=== PATIENT | male | born 1965 | race Caucasian/White ===

== ENCOUNTER 2019-05-05 07:40 | Emergency (ER) | payer OTHER, MEDICAID ==
[~2019-05-05] VITALS: Ht 182.9 cm; Wt 90.3 kg
--- NOTE | 2019-05-05 07:45 | NUR ---
BIB [facility], FOUND ALTERED X 1 HOUR OFFICE MESSENGER. PATIENT A/OX1, RESPONSIVE TO STIMULI. BREATHING EVEN AND UNLABORED, NO SOB NOTED. SKIN FEELS COLD TO TOUCH. DR. SILVERMAN AT BEDSIDE FOR EVAL. PATIENT CHANGED INTO GOWN AND ATTACHED TO THE MONITOR.
[2019-05-05] MEDS ORDERED: IV NS 0.9% 500 ML BAG IV ONE (08:00)
[2019-05-05] MEDS ORDERED: DEXTROSE 50%-WATER 50 ML DISP.SYRIN ONE (08:01)
[2019-05-05 08:16] LABS: BASOPHILS # (AUTO) 0.1 /CMM (0.0-0.2); BASOPHILS % (AUTO) 0.9 % (0.0-2.0); EOSINOPHILS % (AUTO) 1.2 % (0.0-6.0); HEMATOCRIT 40 % (39-51); HEMOGLOBIN 13.6 g/dL (13.5-17.5); LYMPHOCYTES # (AUTO) 1.1 /CMM (0.8-4.8); LYMPHOCYTES % (AUTO) 8.6 % (20.0-44.0); MEAN CORPUSCULAR HGB CONC 34 g/dl (31.0-36.0); MEAN CORPUSCULAR VOLUME 96 fL (80-96); MONOCYTES # (AUTO) 0.8 /CMM (0.1-1.30); MONOCYTES % (AUTO) 5.7 % (2.0-12.0); NEUTROPHILS # (AUTO) 11.1 /CMM (1.8-8.9); NEUTROPHILS % (AUTO) 83.6 % (43.0-81.0); PLATELET COUNT (AUTO) 232 /CMM (150-450); WHITE BLOOD COUNT (AUTO) 13.3 K/uL (4.3-11.0)
--- NOTE | 2019-05-05 08:17 | NUR ---
PATIENT MORE ALERT, A/OX2-3, VERBALLY RESPONSIVE. URINAL PROVIDED, UNABLE TO URINATE AT THIS TIME.
[2019-05-05 08:25] LABS: ALANINE AMINOTRANSFERASE 23 U/L (12-78); ALBUMIN 3.2 g/dL (3.4-5.0); ALCOHOL, BLOOD < 3 mg/dL (0-0); ALKALINE PHOSPHATASE 204 U/L (46-116); ASPARTATE AMINOTRANSFERASE 21 U/L (15-37); BILIRUBIN,DIRECT 0.1 mg/dL (0.0-0.2); BILIRUBIN,TOTAL 0.2 mg/dL (0.2-1.0); CARBON DIOXIDE 31 mmol/L (21-32); CHLORIDE 106 mmol/L (98-107); CREATININE 1.2 mg/dL (0.6-1.3); POTASSIUM 3.7 mmol/L (3.5-5.1); SALICYLATE 8.1 mg/dL (2.8-20.0); SODIUM SERUM 142 mmol/L (136-145); TOTAL PROTEIN, SERUM 6.4 g/dL (6.4-8.2); UREA NITROGEN, BLOOD 30 mg/dL (7-18)
[2019-05-05 08:26] LABS: ACETAMINOPHEN 0 ug/ml (10-30)
[2019-05-05 08:27] LABS: GLUCOSE 27 mg/dL (74-106)
[2019-05-05] MEDS ORDERED: DEXTROSE 50%-WATER 50 ML DISP.SYRIN IVP ONE (08:30)
--- NOTE | 2019-05-05 08:40 | NUR ---
PATIENT CAME BACK FROM [place]
[2019-05-05 08:47] LABS: SERUM AMMONIA 18 umol/L (11-32)
--- NOTE | 2019-05-05 08:57 | NUR ---
PAGED CATRACHITO ZHANGP
--- NOTE | 2019-05-05 09:11 | NUR ---
SPOKE TO [facility], GAVE UPDATED VITALS.
--- NOTE | 2019-05-05 09:30 | NUR ---
STARTED IV D5 1/2NS AT 75ML/HR PER DR. SILVERMAN. UNABLE TO ADMINISTER ON E-MAR SECTION.
--- NOTE | 2019-05-05 09:47 | NUR ---
FOOD PROVIDED, PATIENT EATING AT THIS TIME.
[2019-05-05] MEDS ORDERED: IV D5/0.45 NACL 500 ML IV ONE (10:00)
--- NOTE | 2019-05-05 10:23 | NUR ---
PATIENT STILL UNABLE TO PROVIDE URINE AT THIS TIME. URINAL AT BEDSIDE.
--- NOTE | 2019-05-05 10:26 | NUR ---
PT ACCEPTED TO [facility] ED ACCEPTING MD DR. ANN NUMBER FOR REPORT IS [phone]
--- NOTE | 2019-05-05 10:49 | NUR ---
SISTER CONTACT INFO IVETH CHÁVEZ ([phone]) PATIENT TOOK ALL HIS SCHEDULED MEDICATIONS, PER DR. HERRERA BRICE FOR PATIENT TO TAKE.
[2019-05-05 10:55] VITALS: BP 150/89
--- NOTE | 2019-05-05 11:12 | NUR ---
PATIENT TRANSFERRED TO [facility], REPORT GIVEN TO JOVI RIVAS VIA [employer], ATTEMPTED TO GIVE REPORT TO [facility], BUT CHARGE NURSE IS UNAVAILABLE AT THIS TIME. PATIENT'S A/OX4, BREATHING EVEN AND UNLABORED, NO DISTRESS NOTED. STILL UNABLE TO PROVIDE UA AT THIS TIME, DR. SILVERMAN AWARE. PATIENT LEFT IN STABLE CONDITION WITH THE IV D5 1/2NS. Addendum: 05/05/19 at 1118 by ROOLEGARIOANCES ADDENDUM: D5 1/2 NS IV START TIME: 929 END TIME: INFUSING WHILE ON TRANSPORT.
--- NOTE | 2019-05-05 11:26 | NUR ---
REPORT GIVEN TO NAYA RIVAS.
== END 2019-05-05 11:26 | disposition short-term general hospital (02) ==
LOC: ER 07:41
DX: E11.649 Type 2 diabetes mellitus with hypoglycemia without coma (principal); R41.82 Altered mental status, unspecified; G40.909 Epilepsy, unspecified, not intractable, without status epilepticus; Z88.8 Allergy status to other drugs, medicaments and biological substances
CPT/HCPCS: 36415; 70450; 71045; 80048; 80076; 80184; 80307; 82140; 82962 ×6; 83605; 84443; 84484; 85025; 85730; 87040 ×2; 93005; 96365; 96366; 96376; 99291; G0480; J3490 ×2; J7040 ×2; 80305

== ENCOUNTER 2022-11-07 15:49 | Emergency (ER) | payer OTHER ==
[~2022-11-07] VITALS: Ht 180.3 cm; Wt 73.5 kg
[2022-11-07] MEDS ORDERED: ETOMIDATE 2 MG/ML VIAL IV ONE ×2 (15:55→17:00)
[2022-11-07] MEDS ORDERED: SUCCINYLCHOLINE CHLORIDE 20 MG/ML VIAL IV ONE ×2 (15:55→17:00)
[2022-11-07] MEDS ORDERED: LORAZEPAM INJ 2 MG/ML VIAL IVP ONE (16:00)
[2022-11-07] MEDS ORDERED: LORAZEPAM INJ 2 MG/ML VIAL ONE (16:01)
[2022-11-07 16:22] LABS: BASOPHILS # (AUTO) 0.2 K/uL (0.0-0.2); HEMATOCRIT 32 % (39-51); HEMOGLOBIN 10.4 g/dL (13.5-17.5); LYMPHOCYTES # (AUTO) 0.2 K/uL (0.8-4.8); LYMPHOCYTES % (AUTO) 1.2 % (20.0-44.0); MEAN CORPUSCULAR HGB CONC 32 g/dl (31.0-36.0); MEAN CORPUSCULAR VOLUME 97 fL (80-96); MONOCYTES # (AUTO) 0.8 K/uL (0.1-1.30); MONOCYTES % (AUTO) 4.4 % (2.0-12.0); NEUTROPHILS # (AUTO) 16.9 K/uL (1.8-8.9); NEUTROPHILS % (AUTO) 93.4 % (43.0-81.0); PLATELET COUNT (AUTO) 293 K/uL (150-450); RED BLOOD CELL COUNT(AUTO) 3.33 MIL/uL (4.5-6.0); WHITE BLOOD COUNT (AUTO) 18.1 K/uL (4.3-11.0)
[2022-11-07] MEDS ORDERED: LEVETIRACETAM (500MG) 500 MG in IV NS 0.9% 100 ML IV ONE (16:30)
[2022-11-07] MEDS ORDERED: PROPOFOL 100 ML ONE ×2 (16:39→22:10)
[2022-11-07] MEDS ORDERED: LEVETIRACETAM (500MG) 500 MG/5 ML VIAL IV ONE (16:40)
--- NOTE | 2022-11-07 16:48 | NUR ---
MD AT BEDSIDE FOR INTUBATION
[2022-11-07] MEDS ORDERED: IV NS 0.9% 1,000 ML IV ONE (17:00)
[2022-11-07] MEDS ORDERED: PROPOFOL 100 ML IV PRN (17:00)
[2022-11-07 17:11] LABS: ALANINE AMINOTRANSFERASE 54 U/L (12-78); ALBUMIN 2.4 g/dL (3.4-5.0); ALKALINE PHOSPHATASE 201 U/L (46-116); ASPARTATE AMINOTRANSFERASE 52 U/L (15-37); BILIRUBIN,DIRECT 0.1 mg/dL (0.0-0.2); BILIRUBIN,TOTAL 0.5 mg/dL (0.2-1.0); CALCIUM, SERUM 8.7 mg/dL (8.5-10.1); CARBON DIOXIDE 13 mmol/L (21-32); CREATININE 3.4 mg/dL (0.6-1.3); POTASSIUM 5.9 mmol/L (3.5-5.1); TOTAL PROTEIN, SERUM 5.6 g/dL (6.4-8.2)
--- NOTE | 2022-11-07 17:19 | NUR ---
MOVE SHEET SUBMITTED.
[2022-11-07 17:24] LABS: CHLORIDE 78 mmol/L (98-107); GLUCOSE 1262 mg/dL (74-106); SODIUM SERUM 120 mmol/L (136-145); UREA NITROGEN, BLOOD 95 mg/dL (7-18)
[2022-11-07 17:25] LABS: ALCOHOL, BLOOD < 3 mg/dL (0-0)
--- NOTE | 2022-11-07 17:41 | NUR ---
CRITICALS reported to
[2022-11-07 17:44] LABS: ABG BASE EXCESS -14.8 mmol/L; ABG PCO2 29.6 mmHg (35.0-45.0); ABG PH 7.213 (7.350-7.450); ABG PO2 121.9 mmHg (75.0-100.0); AaDO2 561.5 mmHg; COHb 0.2 % (0.5-1.5); MetHb 0.3 % (0.0-1.5); O2Hb 96.5 % (94.0-97.0); SITE, ABG Left Radial
[2022-11-07] MEDS ORDERED: CEFEPIME 1 GM in IV D5W 50 ML IV ONE (18:00)
[2022-11-07] MEDS ORDERED: VANCOMYCIN 1 GM in IV D5W 250 ML IV ONE (18:00)
[2022-11-07] MEDS ORDERED: INSULIN REGULAR, HUMAN 100 UNITS in IV NS 0.9% 100 ML IV ONE ×2 (18:00)
[2022-11-07] MEDS ORDERED: IV NS 0.9% 1,000 ML IV PRN (18:00)
--- NOTE | 2022-11-07 18:06 | NUR ---
CALLED [facility] [phone] WILL CALL US BACK.
--- NOTE | 2022-11-07 18:36 | NUR ---
DR. JEREZ FROM [facility] SPEAKING WITH DR. CHAPARRO.
--- NOTE | 2022-11-07 18:45 | NUR ---
PATIENT WAS INTUBATED AROUND 1648 WITH 7.5 ETT TUBE @ 26 LIP. EQUAL BILATERAL CHEST RISE NOTED WITH EQUAL BREATH SOUND. X RAY CONFIRM ET TUBE IN PLACE. PATIENT IS STABLE. ABG DONE AND FIO2 TITRATE TO 40% PER DR. DOMINIQUE. Addendum: 11/07/22 at 1848 by EVERTON ALBA RT Amended: Links added.
--- NOTE | 2022-11-07 18:51 | NUR ---
CALLED [facility] [phone] CHAPARRO BACK.
[2022-11-07] MEDS ORDERED: MORPHINE SULFATE INJ 2 MG/ML DISP.SYRIN IV PRN (19:00)
[2022-11-07] MEDS ORDERED: ONDANSETRON HCL/PF 4 MG/2 ML VIAL IVP PRN (19:00)
[2022-11-07] MEDS ORDERED: ACETAMINOPHEN 325 MG TABLET PO PRN (19:00)
[2022-11-07] MEDS ORDERED: LEVETIRACETAM (500MG) 500 MG in IV NS 0.9% 100 ML IV SCH (19:00)
[2022-11-07] MEDS ORDERED: IV 1/2NS 1000 ML 1,000 ML IV PRN (19:00)
[2022-11-07] MEDS ORDERED: POTASSIUM CL. PREMIX PERIPHER. 50 ML IV PRN (19:00)
[2022-11-07] MEDS ORDERED: IV D5/0.45 NACL 1,000 ML IV PRN (19:00)
[2022-11-07] MEDS ORDERED: INSULIN REGULAR, HUMAN 100 UNITS in IV NS 0.9% 100 ML IV PRN ×2 (19:00)
--- NOTE | 2022-11-07 19:10 | NUR ---
COVID SWAB TAKEN AND SENT TO LAB
--- NOTE | 2022-11-07 19:21 | NUR ---
DR. ARIAS SPEAKING WITH DR. CHAPARRO.
--- NOTE | 2022-11-07 19:30 | NUR ---
COVID ANTIGEN SWAB COLLECTED AND SENT TO LAB
--- NOTE | 2022-11-07 19:45 | NUR ---
INSULIN DRIP STARTED AT 7.3MLS/HR FIXED RATE
--- NOTE | 2022-11-07 19:49 | NUR ---
ROOM 253
--- NOTE | 2022-11-07 19:54 | NUR ---
sister long [phone]
[2022-11-07 20:00] LABS: CALCIUM, SERUM 8.5 mg/dL (8.5-10.1); CREATININE 3.4 mg/dL (0.6-1.3); MAGNESIUM 2.8 mg/dL (1.8-2.4); PHOSPHORUS 7.8 mg/dL (2.5-4.9); POTASSIUM 5.5 mmol/L (3.5-5.1)
--- NOTE | 2022-11-07 20:16 | NUR ---
DR. SOLITARIO WINSTON ON PHONE CALL WITH DR. CHAPARRO.
[2022-11-07] MEDS ORDERED: MEROPENEM 1 G in IV NS 0.9% 100 ML IV SCH (21:00)
--- NOTE | 2022-11-07 21:25 | NUR ---
CALLED [facility] [phone] TO GIVEN UPDATED COVID RESULTS
--- NOTE | 2022-11-07 21:46 | NUR ---
C/O IRIS AT [place] , PT ALREADY HAS A ROOM AT [facility] BUT THEY ARE LOOKING FOR CCT TRANSFER TEAM
[2022-11-07 21:57] LABS: CALCIUM, SERUM 8.1 mg/dL (8.5-10.1); CREATININE 3.4 mg/dL (0.6-1.3); MAGNESIUM 2.9 mg/dL (1.8-2.4); PHOSPHORUS 7.8 mg/dL (2.5-4.9); POTASSIUM 5.3 mmol/L (3.5-5.1)
--- NOTE | 2022-11-07 22:07 | NUR ---
CRITICAL LAB: GLUCOSE [id number]
[2022-11-07 22:40] LABS: BILIRUBIN,URINE NEGATIVE (NEGATIVE); COLOR,URINE YELLOW (YELLOW); LEUKOCYTE ESTERASE ,URINE NEGATIVE (NEGATIVE); NITRITE, URINE NEGATIVE (NEGATIVE); PH,URINE 5.5 (5.0-8.0); PROTEIN,URINE 2+ mg/dl (NEGATIVE); UGLUCOSE 3+ mg/dL (NEGATIVE); UROBILINOGEN,URINE 0.2 EU/dL (0.2)
[2022-11-07 22:55] VITALS: BP 117/78
[2022-11-07] MEDS ORDERED: IV NS 0.9% 1,000 ML BAG IV ONE (23:00)
--- NOTE | 2022-11-07 23:06 | NUR ---
ACCPETED AT [facility] CCT-RN CODE 3 UNDER MD [facility]AD[place] ROOM [id number] ICU REPORT [phone]
[2022-11-07 23:07] LABS: BACTERIA,URINE Rare /HPF (None Seen); RBC,URINE 0-2 /HPF (0-2); SQUAMOUS EPITHELIAL CELL,UR Rare /HPF (None Seen); WBC,URINE 0-2 /HPF (0-3)
[2022-11-07 23:08] LABS: URINE AMORPHOUS URATE Few /HPF (None Seen)
--- NOTE | 2022-11-07 23:14 | NUR ---
RESIDENTIAL AIDE AT PT'S BEDSIDE
--- NOTE | 2022-11-07 23:15 | NUR ---
IVETH(SISTER) WAS NOTIFIED THAT PT IS BEING TRANSFERED TO [facility]
--- NOTE | 2022-11-07 23:19 | NUR ---
REPORT GIVEN TO EVELYN LIND
--- NOTE | 2022-11-07 23:48 | NUR ---
REPORT GIVEN TO CCT-RN AND TEAM AT BEDSIDE
[2022-11-08 00:23] LABS: CREATININE 3.4 mg/dL (0.6-1.3); MAGNESIUM 2.6 mg/dL (1.8-2.4); PHOSPHORUS 6.5 mg/dL (2.5-4.9); POTASSIUM 3.6 mmol/L (3.5-5.1)
[2022-11-08] MEDS ORDERED: VANCOMYCIN POST DIALYSIS 500MG IV PRN ×2 (12:00)
== END 2022-11-08 00:10 | disposition short-term general hospital (02) ==
LOC: ER 15:54
DX: E11.10 Type 2 diabetes mellitus with ketoacidosis without coma (principal); J96.01 Acute respiratory failure with hypoxia; G40.901 Epilepsy, unspecified, not intractable, with status epilepticus; E44.0 Moderate protein-calorie malnutrition; Z68.22 Body mass index [BMI] 22.0-22.9, adult; N17.9 Acute kidney failure, unspecified; E87.5 Hyperkalemia; D72.829 Elevated white blood cell count, unspecified; Z20.822 Contact with and (suspected) exposure to COVID-19; J93.9 Pneumothorax, unspecified; T50.916A Underdosing of multiple unspecified drugs, medicaments and biological substances, initial encounter; Z91.128 Patient's intentional underdosing of medication regimen for other reason; Y92.019 Unspecified place in single-family (private) house as the place of occurrence of the external cause; E87.1 Hypo-osmolality and hyponatremia; Z88.8 Allergy status to other drugs, medicaments and biological substances; I69.398 Other sequelae of cerebral infarction; G93.89 Other specified disorders of brain
CPT/HCPCS: 99291; 96365; 96366; 96368; 31500; 96375; 83935; 71045 ×4; 70450; 74176; 85025; 80048 ×4; 87040 ×2; 87086; 83605; 83690; 80076; 83735 ×3; 84100 ×3; 80156; 81001; 36415; 80164; 82962 ×3; 36600; 80177; 87426; 80320; 80307; J2060; J0330; J3370; J7060; J7030 ×4; J3490 ×3; J0692; J1953; J1815; C9803; G0480

== ENCOUNTER 2023-07-06 16:33 | Emergency (ER) | payer OTHER ==
[~2023-07-06] VITALS: Ht 172.7 cm; Wt 68.9 kg
[2023-07-06] MEDS ORDERED: LEVETIRACETAM (500MG) 500 MG in IV NS 0.9% 100 ML IV ONE (17:30)
[2023-07-06 17:47] LABS: BASOPHILS # (AUTO) 0.1 K/uL (0.0-0.2); BASOPHILS % (AUTO) 1.7 % (0.0-2.0); EOSINOPHILS # (AUTO) 0.1 K/uL (0.0-0.7); EOSINOPHILS % (AUTO) 1.4 % (0.0-6.0); HEMATOCRIT 28 % (39-51); LYMPHOCYTES # (AUTO) 0.5 K/uL (0.8-4.8); MEAN CORPUSCULAR HEMOGLOBIN 31 PG (26.0-33.0); MEAN CORPUSCULAR HGB CONC 32 g/dl (31.0-36.0); MEAN CORPUSCULAR VOLUME 96 fL (80-96); MONOCYTES # (AUTO) 0.3 K/uL (0.1-1.30); MONOCYTES % (AUTO) 5.4 % (2.0-12.0); NEUTROPHILS # (AUTO) 4.9 K/uL (1.8-8.9); NEUTROPHILS % (AUTO) 82.5 % (43.0-81.0); PLATELET COUNT (AUTO) 183 K/uL (150-450); RED BLOOD CELL COUNT(AUTO) 2.87 MIL/uL (4.5-6.0)
[2023-07-06 17:54] LABS: CALCIUM, SERUM 8.2 mg/dL (8.5-10.1); CARBON DIOXIDE 15 mmol/L (21-32); CHLORIDE 104 mmol/L (98-107); CREATININE 4.3 mg/dL (0.6-1.3); POTASSIUM 4.7 mmol/L (3.5-5.1); SODIUM SERUM 133 mmol/L (136-145); UREA NITROGEN, BLOOD 71 mg/dL (7-18)
[2023-07-06 17:55] LABS: GLUCOSE 425 mg/dL (74-106)
[2023-07-06 17:57] LABS: PHENOBARBITAL 12 ug/ml (15-39)
[2023-07-06 17:58] LABS: ALANINE AMINOTRANSFERASE 86 U/L (12-78); ALBUMIN 2.7 g/dL (3.4-5.0); ALCOHOL, BLOOD < 3 mg/dL (0-10); ALKALINE PHOSPHATASE 219 U/L (46-116); ASPARTATE AMINOTRANSFERASE 103 U/L (15-37); BILIRUBIN,TOTAL 0.1 mg/dL (0.2-1.0); TOTAL PROTEIN, SERUM 6.4 g/dL (6.4-8.2)
[2023-07-06 18:16] LABS: INR 0.92 (0.91-1.10); PARTIAL THROMBOPLASTIN TIME 23.6 SEC (24.3-34.3); PROTHROMBIN TIME 9.7 SECS (9.2-11.1)
[2023-07-06 18:36] LABS: VALPROIC ACID < 3 ug/mL (50-100)
[2023-07-06] MEDS ORDERED: PHENYTOIN SODIUM IV 1,000 MG in IV NS 0.9% 100 ML IV ONE (20:00)
[2023-07-06] MEDS ORDERED: IV NS 0.9% 1,000 ML IV ONE ×2 (20:00→21:30)
[2023-07-06 20:03] VITALS: TEMP 98.6
[2023-07-06 20:03] LABS: AMPHETAMINE, URINE NEGATIVE (NEGATIVE); BARBITURATE, URINE POSITIVE (NEGATIVE); BENZODIAZEPINE, URINE NEGATIVE (NEGATIVE); CANNABINOID, URINE POSITIVE (NEGATIVE); COCCAINE, URINE NEGATIVE (NEGATIVE); OPIATE, URINE NEGATIVE (NEGATIVE); PHENCYCLIDINE SCREEN,URINE NEGATIVE (NEGATIVE)
[2023-07-06] MEDS ORDERED: LABETALOL HCL IV 100MG VIAL ONE (20:14)
[2023-07-06] MEDS ORDERED: phenytoin SODIUM IV 250 MG/5 ML VIAL IV ONE ×2 (20:14→20:15)
[2023-07-06] MEDS ORDERED: LABETALOL HCL IV 100MG VIAL IV ONE (20:30)
[2023-07-06] MEDS ORDERED: PHENOBARBITAL 30 MG TABLET ONE (20:39)
[2023-07-06] MEDS ORDERED: PHENOBARBITAL 30 MG TABLET PO ONE (21:00)
[2023-07-06] MEDS ORDERED: INSULIN REGULAR, HUMAN 100 UNIT/ML 10 ML VIAL ONE (21:46)
[2023-07-06] MEDS ORDERED: hydrALAZINE HCL IV 20 MG VIAL ONE (21:46)
[2023-07-06] MEDS ORDERED: INSULIN REGULAR, HUMAN 100 UNIT/ML 10 ML VIAL SQ ONE (22:00)
[2023-07-06] MEDS ORDERED: hydrALAZINE HCL IV 20 MG VIAL IV ONE (22:00)
[2023-07-06 22:21] VITALS: BP 159/65; O2SAT 99
[2023-07-06 22:26] LABS: CREATININE 4.2 mg/dL (0.6-1.3); POTASSIUM 4.7 mmol/L (3.5-5.1)
== END 2023-07-07 00:05 | disposition home or self-care (01) ==
LOC: ER 17:54
DX: R56.9 Unspecified convulsions (principal); E11.65 Type 2 diabetes mellitus with hyperglycemia; E11.22 Type 2 diabetes mellitus with diabetic chronic kidney disease; D64.9 Anemia, unspecified
CPT/HCPCS: 99291; 96372; 96365; 96361; 96367; 96375; 70450; 85025; 80048 ×2; 80185; 80076; 80184; 36415; 80164; 85730; 82962; 80320; 80307; J1165 ×2; J0360; J1815; J3490; J7030 ×3; A4223; J1953; G0480

== ENCOUNTER 2023-08-20 09:16 | Inpatient (IN) | payer OTHER, MEDICAID ==
[~2023-08-20] VITALS: Ht 175.3 cm; Wt 75.3 kg
[2023-08-20] VITALS (8 sets, daily range): BP systolic 168–224; BP diastolic 75–96; TEMP 98.6; O2SAT 98–99
[2023-08-20 10:17] LABS: PHENOBARBITAL 17 ug/ml (15-39)
[2023-08-20 10:18] LABS: ALBUMIN 2.8 g/dL (3.4-5.0); BILIRUBIN,TOTAL 0.2 mg/dL (0.2-1.0); CALCIUM, SERUM 8.5 mg/dL (8.5-10.1); POTASSIUM 4.6 mmol/L (3.5-5.1); TOTAL PROTEIN, SERUM 6.3 g/dL (6.4-8.2)
[2023-08-20 10:40] LABS: BASOPHILS # (AUTO) 0.1 K/uL (0.0-0.2); BASOPHILS % (AUTO) 0.8 % (0.0-2.0); EOSINOPHILS % (AUTO) 0.1 % (0.0-6.0); HEMATOCRIT 28 % (39-51); HEMOGLOBIN 9.7 g/dL (13.5-17.5); LYMPHOCYTES # (AUTO) 0.4 K/uL (0.8-4.8); MEAN CORPUSCULAR HEMOGLOBIN 32 PG (26.0-33.0); MEAN CORPUSCULAR HGB CONC 35 g/dl (31.0-36.0); MEAN CORPUSCULAR VOLUME 94 fL (80-96); MONOCYTES # (AUTO) 0.5 K/uL (0.1-1.30); MONOCYTES % (AUTO) 4.7 % (2.0-12.0); NEUTROPHILS % (AUTO) 90.4 % (43.0-81.0); PLATELET COUNT (AUTO) 200 K/uL (150-450); RED BLOOD CELL COUNT(AUTO) 2.99 MIL/uL (4.5-6.0); RED CELL DISTRIBUTION WIDTH 14.2 % (11.5-15.0)
[2023-08-20] MEDS ORDERED: DEXTROSE 50%-WATER 50 ML DISP.SYRIN ONE (10:40)
[2023-08-20] MEDS ORDERED: DEXTROSE 50%-WATER 50 ML DISP.SYRIN IVP ONE ×2 (11:00→12:30)
[2023-08-20] MEDS ORDERED: IV D5/0.45 NACL 500 ML IV ONE (11:00)
[2023-08-20 11:05] LABS: PHENYTOIN (DILANTIN) < 0.5 ug/ml (10.0-20.0)
[2023-08-20 11:24] LABS: APPEARANCE,URINE CLEAR (CLEAR); BILIRUBIN,URINE NEGATIVE (NEGATIVE); BLOOD, URINE TRACE-INTA Ery/uL (NEGATIVE); COLOR,URINE YELLOW (YELLOW); KETONES,URINE NEGATIVE (NEGATIVE); LEUKOCYTE ESTERASE ,URINE NEGATIVE (NEGATIVE); NITRITE, URINE NEGATIVE (NEGATIVE); PH,URINE 5.5 (5.0-8.0); PROTEIN,URINE 3+ mg/dl (NEGATIVE); UGLUCOSE TRACE mg/dL (NEGATIVE); UROBILINOGEN,URINE 0.2 EU/dL (0.2)
[2023-08-20 11:51] LABS: ADD URINE CULTURE NO; BACTERIA,URINE Few /HPF (None Seen); RBC,URINE 0-2 /HPF (0-2); SQUAMOUS EPITHELIAL CELL,UR Moderate /HPF (None Seen); WBC,URINE 0-3 /HPF (0-3)
[2023-08-20] MEDS ORDERED: Sodium Chloride 154 MEQ in IV 10% DEXTROSE 1,000 ML IV PRN (12:00)
[2023-08-20] MEDS ORDERED: BUME2TAB7 PO (12:19)
[2023-08-20] MEDS ORDERED: ATOR10TA PO (12:19)
[2023-08-20] MEDS ORDERED: SODI650T PO ×2 (12:19)
[2023-08-20] MEDS ORDERED: AMLO-213 PO (12:19)
[2023-08-20] MEDS ORDERED: PARO40TA4 PO (12:19)
[2023-08-20] MEDS ORDERED: CHOL100043 PO (12:19)
[2023-08-20] MEDS ORDERED: HYDR100T27 PO (12:19)
[2023-08-20] MEDS ORDERED: EPOE200011 SQ (12:19)
[2023-08-20] MEDS ORDERED: SEMGLEE SQ ×2 (12:19)
[2023-08-20] MEDS ORDERED: FERR325T23 PO (12:19)
[2023-08-20] MEDS ORDERED: GLUC3SPR (12:19)
[2023-08-20] MEDS ORDERED: LEVE500T9 PO (12:19)
[2023-08-20] MEDS ORDERED: BISO5TAB20 PO (12:19)
[2023-08-20] MEDS ORDERED: CALC667C6 PO (12:19)
[2023-08-20] MEDS ORDERED: INSU100V27 SQ (12:19)
[2023-08-20] MEDS ORDERED: PHEN32.46 PO ×2 (12:19)
[2023-08-20] MEDS ORDERED: TRAZ150T75 PO (12:19)
[2023-08-20] MEDS ORDERED: [UNRECOGNIZED DRUG - CODE] PO (12:19)
[2023-08-20] MEDS ORDERED: SODI10PO PO (12:19)
[2023-08-20] MEDS ORDERED: AMYL1CAP63 PO ×2 (12:19)
[2023-08-20] MEDS ORDERED: FAMO20TA8 PO (12:19)
[2023-08-20] MEDS ORDERED: Z GUARD REMEDY 4 OZ OINT TP PRN (13:30)
[2023-08-20] MEDS ORDERED: ZENPEP PO PRN (13:30)
[2023-08-20] MEDS ORDERED: Sodium Chloride 77 MEQ in IV 10% DEXTROSE 1,000 ML IV PRN (13:30)
[2023-08-20] MEDS ORDERED: ONDANSETRON HCL/PF 4 MG/2 ML VIAL IVP PRN (13:30)
[2023-08-20] MEDS ORDERED: ACETAMINOPHEN 325 MG TABLET PO PRN (13:30)
[2023-08-20] MEDS: hydrALAZINE HCL 50 MG TABLET PO SCH (17:35)
[2023-08-20] MEDS: BUMETANIDE (1 MG) 1 MG TABLET PO SCH (17:35)
[2023-08-20] MEDS: SODIUM BICARBONATE 650 MG TABLET PO SCH (17:36)
[2023-08-20] MEDS: CALCIUM ACETATE 667 MG CAP/TAB PO SCH (17:36)
[2023-08-20] MEDS ORDERED: hydrALAZINE HCL 50 MG TABLET PO SCH (18:00)
[2023-08-20] MEDS: LEVETIRACETAM (500MG) 1,000 MG in IV NS 0.9% 90 ML IV SCH (18:23)
[2023-08-20] MEDS ORDERED: DEXTROSE 50%-WATER 50 ML DISP.SYRIN IV PRN (20:00)
[2023-08-20] MEDS: hydrALAZINE HCL IV 20 MG VIAL IV PRN (20:49)
[2023-08-20] MEDS ORDERED: LEVETIRACETAM (250 MG) 250 MG TABLET PO SCH (21:00)
[2023-08-20] MEDS: PHENOBARBITAL 30 MG TABLET PO SCH (21:25)
[2023-08-20] MEDS: BLOOD SUGAR DIAGNOSTIC 1 EACH STRIP VI SCH (21:25)
[2023-08-20] MEDS: TRAZODONE 50 MG TABLET PO SCH (21:25)
[2023-08-20] MEDS ORDERED: Sodium Chloride 77 MEQ in IV 10% DEXTROSE 1,000 ML IV SCH (22:00)
[2023-08-21] VITALS (24 sets, daily range): BP systolic 134–199; BP diastolic 65–102; TEMP 98.1–98.9; O2SAT 95–100
[2023-08-21 04:58] LABS: BASOPHILS # (AUTO) 0.1 K/uL (0.0-0.2); BASOPHILS % (AUTO) 1.1 % (0.0-2.0); EOSINOPHILS # (AUTO) 0.2 K/uL (0.0-0.7); EOSINOPHILS % (AUTO) 2.9 % (0.0-6.0); HEMATOCRIT 25 % (39-51); HEMOGLOBIN 8.4 g/dL (13.5-17.5); LYMPHOCYTES % (AUTO) 14.1 % (20.0-44.0); MEAN CORPUSCULAR HEMOGLOBIN 32 PG (26.0-33.0); MEAN CORPUSCULAR HGB CONC 33 g/dl (31.0-36.0); MEAN CORPUSCULAR VOLUME 96 fL (80-96); MONOCYTES # (AUTO) 0.6 K/uL (0.1-1.30); MONOCYTES % (AUTO) 8.2 % (2.0-12.0); NEUTROPHILS # (AUTO) 5.4 K/uL (1.8-8.9); NEUTROPHILS % (AUTO) 73.7 % (43.0-81.0); PLATELET COUNT (AUTO) 161 K/uL (150-450); RED BLOOD CELL COUNT(AUTO) 2.65 MIL/uL (4.5-6.0); RED CELL DISTRIBUTION WIDTH 14.2 % (11.5-15.0); WHITE BLOOD COUNT (AUTO) 7.3 K/uL (4.3-11.0)
[2023-08-21 05:23] LABS: ALBUMIN 2.2 g/dL (3.4-5.0); BILIRUBIN,TOTAL 0.1 mg/dL (0.2-1.0); CREATININE 5.5 mg/dL (0.6-1.3); MAGNESIUM 1.8 mg/dL (1.8-2.4); POTASSIUM 4.3 mmol/L (3.5-5.1); TOTAL PROTEIN, SERUM 5.4 g/dL (6.4-8.2)
[2023-08-21 05:32] LABS: EOSINOPHILS % (MANUAL) 2 % (0-4); LYMPHOCYTES % (MANUAL) 11 % (16-48); MONOCYTES % (MANUAL) 8 % (0-11.0); NEUTROPHILS % (MANUAL) 79 (42-76); PLATELET ESTIMATE ADEQUATE
[2023-08-21] MEDS: hydrALAZINE HCL IV 20 MG VIAL IV PRN ×2 (06:09→11:50)
[2023-08-21] MEDS: BLOOD SUGAR DIAGNOSTIC 1 EACH STRIP VI SCH (07:30)
[2023-08-21] MEDS: PHENOBARBITAL 30 MG TABLET PO SCH ×2 (08:53→21:27)
[2023-08-21] MEDS: CHOLECALCIFEROL 1,000 UNIT TABLET (VIT D3) PO SCH (08:54)
[2023-08-21] MEDS: FERROUS SULFATE (325 MG) 325 MG/TAB TABLET PO SCH (08:54)
[2023-08-21] MEDS: ATORVASTATIN 10 MG TABLET PO SCH (08:54)
[2023-08-21] MEDS: CALCIUM ACETATE 667 MG CAP/TAB PO SCH ×3 (08:54→17:37)
[2023-08-21] MEDS: BUMETANIDE (1 MG) 1 MG TABLET PO SCH ×2 (08:54→17:37)
[2023-08-21] MEDS: AMLODIPINE BESYLATE 10 MG TABLET PO SCH (09:02)
[2023-08-21] MEDS: SODIUM BICARBONATE 650 MG TABLET PO SCH ×2 (09:03→17:39)
[2023-08-21] MEDS: hydrALAZINE HCL 50 MG TABLET PO SCH ×2 (09:03→17:38)
[2023-08-21] MEDS: BISOPROLOL FUMARATE 5 MG TABLET PO SCH (09:04)
[2023-08-21] MEDS: INSULIN REGULAR, HUMAN 100 UNIT/ML 3 ML VIAL SQ PRN ×2 (09:05→13:50)
[2023-08-21] MEDS: LEVETIRACETAM (500MG) 1,000 MG in IV NS 0.9% 90 ML IV SCH (09:25)
[2023-08-21] MEDS: BLOOD SUGAR DIAGNOSTIC 1 EACH STRIP IN SCH ×4 (11:22→21:27)
[2023-08-21] MEDS ORDERED: PANCRELIPASE PO SCH ×2 (13:00→18:00)
[2023-08-21] MEDS ORDERED: DEXTROSE 50%-WATER 50 ML DISP.SYRIN IV PRN (14:30)
[2023-08-21] MEDS ORDERED: LACOSAMIDE 200 MG in IV NS 0.9% 100 ML IV ONE (17:30)
[2023-08-21] MEDS: PANCRELIPASE PO SCH (18:03)
[2023-08-21] MEDS ORDERED: LEVETIRACETAM (250 MG) 250 MG TABLET PO SCH (21:00)
[2023-08-21] MEDS: TRAZODONE 50 MG TABLET PO SCH (21:28)
[2023-08-21] MEDS: *INSULIN REGULAR(HUMULIN R)HUM 100 UNIT/ML VIAL SQ PRN (21:30)
[2023-08-22] VITALS (13 sets, daily range): BP systolic 123–178; BP diastolic 64–95; TEMP 98.2–98.9; O2SAT 96–98
[2023-08-22] MEDS: hydrALAZINE HCL IV 20 MG VIAL IV PRN ×2 (00:35→07:18)
[2023-08-22 04:55] LABS: BASOPHILS % (AUTO) 0.5 % (0.0-2.0); EOSINOPHILS # (AUTO) 0.2 K/uL (0.0-0.7); EOSINOPHILS % (AUTO) 3.3 % (0.0-6.0); HEMATOCRIT 25 % (39-51); HEMOGLOBIN 8.3 g/dL (13.5-17.5); LYMPHOCYTES # (AUTO) 1.1 K/uL (0.8-4.8); MEAN CORPUSCULAR HEMOGLOBIN 32 PG (26.0-33.0); MEAN CORPUSCULAR HGB CONC 33 g/dl (31.0-36.0); MEAN CORPUSCULAR VOLUME 96 fL (80-96); MONOCYTES # (AUTO) 0.6 K/uL (0.1-1.30); MONOCYTES % (AUTO) 8.5 % (2.0-12.0); NEUTROPHILS # (AUTO) 4.7 K/uL (1.8-8.9); NEUTROPHILS % (AUTO) 71.7 % (43.0-81.0); PLATELET COUNT (AUTO) 165 K/uL (150-450); RED BLOOD CELL COUNT(AUTO) 2.59 MIL/uL (4.5-6.0); RED CELL DISTRIBUTION WIDTH 13.8 % (11.5-15.0); WHITE BLOOD COUNT (AUTO) 6.6 K/uL (4.3-11.0)
[2023-08-22 05:01] LABS: ALBUMIN 1.9 g/dL (3.4-5.0); BILIRUBIN,TOTAL 0.2 mg/dL (0.2-1.0); CALCIUM, SERUM 7.6 mg/dL (8.5-10.1); MAGNESIUM 1.9 mg/dL (1.8-2.4); PHOSPHORUS 7.6 mg/dL (2.5-4.9); POTASSIUM 5.4 mmol/L (3.5-5.1); TOTAL PROTEIN, SERUM 5.3 g/dL (6.4-8.2)
[2023-08-22 05:44] LABS: EOSINOPHILS % (MANUAL) 4 % (0-4); LYMPHOCYTES % (MANUAL) 18 % (16-48); MONOCYTES % (MANUAL) 8 % (0-11.0); NEUTROPHILS % (MANUAL) 70 (42-76); PLATELET ESTIMATE ADEQUATE
[2023-08-22] MEDS ORDERED: SODIUM POLYSTYRENE SULFONATE 15 G/60 ML BOTTLE PO ONE (08:00)
[2023-08-22] MEDS: *INSULIN REGULAR(HUMULIN R)HUM 100 UNIT/ML VIAL SQ PRN (08:38)
[2023-08-22] MEDS: BLOOD SUGAR DIAGNOSTIC 1 EACH STRIP IN SCH ×2 (08:40→12:01)
[2023-08-22] MEDS: INSULIN REGULAR, HUMAN 100 UNIT/ML 3 ML VIAL SQ PRN ×2 (08:44→12:05)
[2023-08-22] MEDS: FERROUS SULFATE (325 MG) 325 MG/TAB TABLET PO SCH (08:59)
[2023-08-22] MEDS: hydrALAZINE HCL 50 MG TABLET PO SCH ×3 (09:00→16:25)
[2023-08-22] MEDS ORDERED: LACOSAMIDE 50 MG TABLET PO SCH (09:00)
[2023-08-22] MEDS: BISOPROLOL FUMARATE 5 MG TABLET PO SCH (09:00)
[2023-08-22] MEDS ORDERED: FAMOTIDINE (20 MG) 20 MG TABLET PO SCH (09:00)
[2023-08-22] MEDS: SODIUM BICARBONATE 650 MG TABLET PO SCH (09:00)
[2023-08-22] MEDS: CALCIUM ACETATE 667 MG CAP/TAB PO SCH ×2 (09:00→12:08)
[2023-08-22] MEDS: AMLODIPINE BESYLATE 10 MG TABLET PO SCH (09:01)
[2023-08-22] MEDS: PHENOBARBITAL 30 MG TABLET PO SCH (09:01)
[2023-08-22] MEDS: ATORVASTATIN 10 MG TABLET PO SCH (09:01)
[2023-08-22] MEDS: BUMETANIDE (1 MG) 1 MG TABLET PO SCH ×2 (09:02→16:24)
[2023-08-22] MEDS: CHOLECALCIFEROL 1,000 UNIT TABLET (VIT D3) PO SCH (09:15)
[2023-08-22] MEDS: PANCRELIPASE PO SCH ×2 (09:23→12:08)
[2023-08-22 13:28] LABS: CREATININE 5.2 mg/dL (0.6-1.3); POTASSIUM 4.7 mmol/L (3.5-5.1)
[2023-08-22] MEDS ORDERED: hydrALAZINE HCL 50 MG TABLET PO ONE (14:00)
[2023-08-25] MEDS ORDERED: EPOETIN ALFA (10,000 UNIT) 10,000 UNIT/ML VIAL SQ SCH (15:00)
== END 2023-08-22 17:24 | disposition short-term general hospital (02) | DRG 637 ==
LOC: ER 09:37 → ICU 15:02 → TELE1 08-22 08:21
PROVIDERS: ADMIT Internal Medicine; ATTEND Nurse Practitioner Family
PROC: 05H633Z Insertion of Infusion Device into Left Subclavian Vein, Percutaneous Approach (ICD-10-PCS; principal; 2023-08-21)
PROC: B547ZZA Ultrasonography of Left Subclavian Vein, Guidance (ICD-10-PCS; 2023-08-21)
DX: E11.649 Type 2 diabetes mellitus with hypoglycemia without coma (principal); G93.41 Metabolic encephalopathy; E87.20 Acidosis, unspecified; I12.0 Hypertensive chronic kidney disease with stage 5 chronic kidney disease or end stage renal disease; G40.909 Epilepsy, unspecified, not intractable, without status epilepticus; N17.9 Acute kidney failure, unspecified; N18.9 Chronic kidney disease, unspecified; D63.8 Anemia in other chronic diseases classified elsewhere; E11.22 Type 2 diabetes mellitus with diabetic chronic kidney disease; E83.39 Other disorders of phosphorus metabolism; E87.5 Hyperkalemia; Z79.4 Long term (current) use of insulin; N18.5 Chronic kidney disease, stage 5; M89.8X9 Other specified disorders of bone, unspecified site; N25.0 Renal osteodystrophy; Z86.69 Personal history of other diseases of the nervous system and sense organs
CPT/HCPCS: 36410; 36415; 71045-TC; 76770-TC; 80048-TC; 80053-TC; 80076-TC; 80184; 80185-TC; 81001; 82962-TC; 83690-TC; 83735-TC; 84100-TC; 85025-TC; A4223; G0378; J0360; J1815; J1953; J3490; J7030; J7042; J7050

== ENCOUNTER 2023-09-03 16:19 | Emergency (ER) | payer OTHER, MEDICAID ==
[~2023-09-03] VITALS: Ht 188 cm; Wt 63.5 kg
[~2023-09-03 16:19] MED LIST: AMLO-213 PO; AMYL1CAP63 PO; ATOR10TA PO; BISO5TAB20 PO; BUME2TAB7 PO; CALC667C6 PO; CHOL100043 PO; EPOE200011 SQ; FAMO20TA8 PO; FERR325T23 PO; GLUC3SPR; HYDR100T27 PO; INSU100V27 SQ; LEVE500T9 PO; PARO40TA4 PO; PHEN32.46 PO; SEMGLEE SQ; SODI10PO PO; SODI650T PO; TRAZ150T75 PO; [UNRECOGNIZED DRUG - CODE] PO
[2023-09-03 18:25] LABS: BASOPHILS # (AUTO) 0.2 K/uL (0.0-0.2); BASOPHILS % (AUTO) 2.2 % (0.0-2.0); EOSINOPHILS # (AUTO) 0.2 K/uL (0.0-0.7); HEMATOCRIT 27 % (39-51); HEMOGLOBIN 9.1 g/dL (13.5-17.5); LYMPHOCYTES # (AUTO) 0.8 K/uL (0.8-4.8); LYMPHOCYTES % (AUTO) 11.8 % (20.0-44.0); MEAN CORPUSCULAR HEMOGLOBIN 32 PG (26.0-33.0); MEAN CORPUSCULAR HGB CONC 33 g/dl (31.0-36.0); MEAN CORPUSCULAR VOLUME 96 fL (80-96); MONOCYTES # (AUTO) 0.4 K/uL (0.1-1.30); MONOCYTES % (AUTO) 5.8 % (2.0-12.0); NEUTROPHILS # (AUTO) 5.5 K/uL (1.8-8.9); NEUTROPHILS % (AUTO) 77.2 % (43.0-81.0); PLATELET COUNT (AUTO) 188 K/uL (150-450); RED BLOOD CELL COUNT(AUTO) 2.84 MIL/uL (4.5-6.0); RED CELL DISTRIBUTION WIDTH 13.5 % (11.5-15.0); WHITE BLOOD COUNT (AUTO) 7.1 K/uL (4.3-11.0)
[2023-09-03 18:40] LABS: CALCIUM, SERUM 8.2 mg/dL (8.5-10.1); CARBON DIOXIDE 16 mmol/L (21-32); CHLORIDE 104 mmol/L (98-107); CREATININE 6.1 mg/dL (0.6-1.3); GLUCOSE 138 mg/dL (74-106); POTASSIUM 4.6 mmol/L (3.5-5.1); SODIUM SERUM 136 mmol/L (136-145)
[2023-09-03 18:48] LABS: UREA NITROGEN, BLOOD 90 mg/dL (7-18)
[2023-09-03 18:53] LABS: INR 0.92 (0.91-1.10); PARTIAL THROMBOPLASTIN TIME 25.8 SEC (24.3-34.3); PROTHROMBIN TIME 9.8 SECS (9.2-11.1)
[2023-09-03] MEDS ORDERED: IV NS 0.9% 1,000 ML BAG IV ONE (19:00)
[2023-09-03 19:48] LABS: APPEARANCE,URINE CLEAR (CLEAR); BILIRUBIN,URINE NEGATIVE (NEGATIVE); BLOOD, URINE NEGATIVE Ery/uL (NEGATIVE); COLOR,URINE YELLOW (YELLOW); KETONES,URINE NEGATIVE (NEGATIVE); LEUKOCYTE ESTERASE ,URINE NEGATIVE (NEGATIVE); NITRITE, URINE NEGATIVE (NEGATIVE); PH,URINE 5.5 (5.0-8.0); PROTEIN,URINE 3+ mg/dl (NEGATIVE); UGLUCOSE 1+ mg/dL (NEGATIVE); UROBILINOGEN,URINE 0.2 EU/dL (0.2)
[2023-09-03 20:49] LABS: ADD URINE CULTURE NO; BACTERIA,URINE RARE /HPF (None Seen); MUCUS,URINE Few /LPF (None Seen); RBC,URINE 0-2 /HPF (0-2); WBC,URINE 0-2 /HPF (0-3)
[2023-09-03 22:00] VITALS: BP 169/85; TEMP 98.4; O2SAT 99
== END 2023-09-03 22:09 | disposition short-term general hospital (02) ==
LOC: ER 16:19
DX: R55 Syncope and collapse (principal); I12.9 Hypertensive chronic kidney disease with stage 1 through stage 4 chronic kidney disease, or unspecified chronic kidney disease; E11.22 Type 2 diabetes mellitus with diabetic chronic kidney disease; N18.9 Chronic kidney disease, unspecified; Z88.6 Allergy status to analgesic agent; Z88.8 Allergy status to other drugs, medicaments and biological substances; Z79.4 Long term (current) use of insulin; Z79.899 Other long term (current) drug therapy
CPT/HCPCS: 99285; 96360; 71045; 85025; 80048; 81001; 36415; 84484; 85730; 82962; J7030

== ENCOUNTER 2023-09-10 10:24 | Inpatient (IN) | payer OTHER ==
[~2023-09-10] VITALS: Ht 172.7 cm; Wt 76.2 kg
[2023-09-10] VITALS (15 sets, daily range): BP systolic 147–186; BP diastolic 66–126; TEMP 99.6; O2SAT 98–100
[2023-09-10] MEDS ORDERED: IV NS 0.9% 1,000 ML BAG IV ONE (10:30)
[2023-09-10 11:48] LABS: BASOPHILS # (AUTO) 0.1 K/uL (0.0-0.2); BASOPHILS % (AUTO) 1.4 % (0.0-2.0); EOSINOPHILS # (AUTO) 0.2 K/uL (0.0-0.7); EOSINOPHILS % (AUTO) 1.8 % (0.0-6.0); HEMATOCRIT 27 % (39-51); HEMOGLOBIN 8.8 g/dL (13.5-17.5); LYMPHOCYTES # (AUTO) 0.4 K/uL (0.8-4.8); MEAN CORPUSCULAR HEMOGLOBIN 32 PG (26.0-33.0); MEAN CORPUSCULAR HGB CONC 33 g/dl (31.0-36.0); MEAN CORPUSCULAR VOLUME 96 fL (80-96); MONOCYTES # (AUTO) 0.3 K/uL (0.1-1.30); MONOCYTES % (AUTO) 3.7 % (2.0-12.0); NEUTROPHILS # (AUTO) 7.9 K/uL (1.8-8.9); NEUTROPHILS % (AUTO) 89.1 % (43.0-81.0); PLATELET COUNT (AUTO) 187 K/uL (150-450); RED BLOOD CELL COUNT(AUTO) 2.78 MIL/uL (4.5-6.0); RED CELL DISTRIBUTION WIDTH 13.4 % (11.5-15.0); WHITE BLOOD COUNT (AUTO) 8.9 K/uL (4.3-11.0)
[2023-09-10] MEDS ORDERED: DEXT1TAB29 PO (11:52)
[2023-09-10 11:58] LABS: INR 0.92 (0.91-1.10); PROTHROMBIN TIME 9.8 SECS (9.2-11.1)
[2023-09-10 12:11] LABS: ALANINE AMINOTRANSFERASE 53 U/L (12-78); ALBUMIN 2.6 g/dL (3.4-5.0); ALKALINE PHOSPHATASE 227 U/L (46-116); ASPARTATE AMINOTRANSFERASE 34 U/L (15-37); BILIRUBIN,DIRECT 0.1 mg/dL (0.0-0.2); BILIRUBIN,TOTAL 0.2 mg/dL (0.2-1.0); CALCIUM, SERUM 8.1 mg/dL (8.5-10.1); CHLORIDE 94 mmol/L (98-107); CREATININE 6.4 mg/dL (0.6-1.3); POTASSIUM 5.4 mmol/L (3.5-5.1); SODIUM SERUM 124 mmol/L (136-145); TOTAL PROTEIN, SERUM 6.1 g/dL (6.4-8.2)
[2023-09-10 12:14] LABS: THYROID STIMULATING HORMONE 8.261 uIU/mL (0.358-3.74)
[2023-09-10 12:19] LABS: CARBON DIOXIDE 10 mmol/L (21-32); GLUCOSE 838 mg/dL (74-106)
[2023-09-10 12:20] LABS: UREA NITROGEN, BLOOD 80 mg/dL (7-18)
[2023-09-10] MEDS ORDERED: INSULIN REGULAR, HUMAN 100 UNITS in IV NS 0.9% 99 ML IV PRN ×2 (12:30)
[2023-09-10] MEDS ORDERED: IV NS 0.9% 1,000 ML IV PRN (12:30)
[2023-09-10] MEDS ORDERED: INSULIN REGULAR, HUMAN 100 UNITS in IV NS 0.9% 100 ML IV PRN ×2 (12:30)
[2023-09-10 12:53] LABS: LACTIC ACID 2.1 mmol/L (0.4-2.0)
[2023-09-10] MEDS ORDERED: ACETAMINOPHEN 325 MG TABLET PO PRN (13:00)
[2023-09-10] MEDS ORDERED: ONDANSETRON HCL/PF 4 MG/2 ML VIAL IVP PRN (13:00)
[2023-09-10] MEDS ORDERED: ZOLPIDEM TARTRATE 5 MG TABLET PO PRN (13:00)
[2023-09-10] MEDS ORDERED: MAGNESIUM HYDROXIDE 30 ML UDC PO PRN (13:00)
[2023-09-10] MEDS ORDERED: IV LR 1000 ML 1,000 ML IV PRN (13:00)
[2023-09-10] MEDS ORDERED: MAG HYDROX/AL HYDROX/SIMETH 30 ML UDC PO PRN (13:00)
[2023-09-10] MEDS ORDERED: Z GUARD REMEDY 4 OZ OINT TP PRN (13:00)
[2023-09-10] MEDS ORDERED: INSULIN REGULAR, HUMAN 100 UNIT in IV NS 0.9% 99 ML IV PRN ×2 (13:00)
[2023-09-10] MEDS ORDERED: IV LR 1000 ML 1,000 ML IV ONE (13:30)
[2023-09-10 13:48] LABS: CALCIUM, SERUM 7.8 mg/dL (8.5-10.1); CREATININE 6.3 mg/dL (0.6-1.3); MAGNESIUM 1.9 mg/dL (1.8-2.4); POTASSIUM 5.6 mmol/L (3.5-5.1)
[2023-09-10 13:53] LABS: PHOSPHORUS 8.2 mg/dL (2.5-4.9)
[2023-09-10 15:08] LABS: CALCIUM, SERUM 7.8 mg/dL (8.5-10.1); CREATININE 6.4 mg/dL (0.6-1.3); POTASSIUM 4.7 mmol/L (3.5-5.1)
[2023-09-10] MEDS ORDERED: LIDOCAINE 2% JEL UROJET 10 ML MM ONE (15:12)
[2023-09-10 15:22] LABS: PHOSPHORUS 8.2 mg/dL (2.5-4.9)
[2023-09-10] MEDS ORDERED: LORAZEPAM INJ 2 MG/ML VIAL ONE (15:30)
[2023-09-10] MEDS ORDERED: SODIUM BICARBONATE 5 MEQ/10 ML DISP.SYRIN IV ONE ×2 (15:30→16:21)
[2023-09-10] MEDS ORDERED: LORAZEPAM INJ 2 MG/ML VIAL IV PRN (16:00)
[2023-09-10] MEDS ORDERED: LEVETIRACETAM (500MG) 1,000 MG in IV NS 0.9% 90 ML IV ONE (16:00)
[2023-09-10] MEDS ORDERED: SODIUM BICARBONATE SYR 50 MEQ/50 ML DISP.SYRIN ONE (16:22)
[2023-09-10 16:51] LABS: APPEARANCE,URINE CLEAR (CLEAR); BILIRUBIN,URINE NEGATIVE (NEGATIVE); BLOOD, URINE TRACE-INTA Ery/uL (NEGATIVE); COLOR,URINE YELLOW (YELLOW); KETONES,URINE NEGATIVE (NEGATIVE); LEUKOCYTE ESTERASE ,URINE NEGATIVE (NEGATIVE); NITRITE, URINE NEGATIVE (NEGATIVE); PH,URINE 5.5 (5.0-8.0); PROTEIN,URINE 3+ mg/dl (NEGATIVE); UGLUCOSE 3+ mg/dL (NEGATIVE); UROBILINOGEN,URINE 0.2 EU/dL (0.2)
[2023-09-10 16:59] LABS: ADD URINE CULTURE NO; BACTERIA,URINE None seen /HPF (None Seen); WBC,URINE 0-2 /HPF (0-3)
[2023-09-10 17:00] LABS: URINE AMORPHOUS URATE Few /HPF (None Seen)
[2023-09-10 17:30] LABS: AMPHETAMINE, URINE NEGATIVE (NEGATIVE); BENZODIAZEPINE, URINE NEGATIVE (NEGATIVE); CANNABINOID, URINE NEGATIVE (NEGATIVE); COCCAINE, URINE NEGATIVE (NEGATIVE); OPIATE, URINE NEGATIVE (NEGATIVE); PHENCYCLIDINE SCREEN,URINE NEGATIVE (NEGATIVE)
[2023-09-10] MEDS ORDERED: SODIUM BICARBONATE SYR 50 MEQ/50 ML DISP.SYRIN IV ONE (17:30)
[2023-09-10 17:37] LABS: BARBITURATE, URINE POSITIVE (NEGATIVE)
[2023-09-10 18:48] LABS: CALCIUM, SERUM 8.1 mg/dL (8.5-10.1); CREATININE 6.1 mg/dL (0.6-1.3); MAGNESIUM 1.9 mg/dL (1.8-2.4); PHOSPHORUS 7.5 mg/dL (2.5-4.9); POTASSIUM 4.2 mmol/L (3.5-5.1)
[2023-09-10] MEDS: BLOOD SUGAR DIAGNOSTIC 1 EACH STRIP IN SCH ×4 (20:13→23:15)
[2023-09-10] MEDS: IV D5/0.45 NACL 1,000 ML IV PRN (21:04)
[2023-09-10 22:20] LABS: CALCIUM, SERUM 7.8 mg/dL (8.5-10.1); CREATININE 5.8 mg/dL (0.6-1.3); POTASSIUM 4.4 mmol/L (3.5-5.1)
[2023-09-10] MEDS: hydrALAZINE HCL IV 20 MG VIAL IV PRN (22:40)
[2023-09-11] VITALS (39 sets, daily range): BP systolic 129–182; BP diastolic 53–93; TEMP 97.6–98.6; O2SAT 96–100
[2023-09-11] MEDS: BLOOD SUGAR DIAGNOSTIC 1 EACH STRIP IN SCH ×11 (00:05→11:16)
[2023-09-11] MEDS: IV D5/0.45 NACL 1,000 ML IV PRN ×2 (02:21→08:44)
[2023-09-11 02:40] LABS: CALCIUM, SERUM 7.8 mg/dL (8.5-10.1); CREATININE 5.7 mg/dL (0.6-1.3); POTASSIUM 4.1 mmol/L (3.5-5.1)
[2023-09-11] MEDS: hydrALAZINE HCL IV 20 MG VIAL IV PRN ×3 (04:07→14:59)
[2023-09-11] MEDS ORDERED: LEVETIRACETAM (500MG) 500 MG in IV NS 0.9% 100 ML IV SCH (06:00)
[2023-09-11 06:08] LABS: BASOPHILS % (AUTO) 0.4 % (0.0-2.0); EOSINOPHILS # (AUTO) 0.2 K/uL (0.0-0.7); EOSINOPHILS % (AUTO) 1.9 % (0.0-6.0); HEMATOCRIT 22 % (39-51); HEMOGLOBIN 7.6 g/dL (13.5-17.5); LYMPHOCYTES # (AUTO) 1.1 K/uL (0.8-4.8); LYMPHOCYTES % (AUTO) 10.3 % (20.0-44.0); MEAN CORPUSCULAR HEMOGLOBIN 32 PG (26.0-33.0); MEAN CORPUSCULAR HGB CONC 35 g/dl (31.0-36.0); MEAN CORPUSCULAR VOLUME 93 fL (80-96); MONOCYTES # (AUTO) 0.8 K/uL (0.1-1.30); MONOCYTES % (AUTO) 7.5 % (2.0-12.0); NEUTROPHILS # (AUTO) 8.7 K/uL (1.8-8.9); NEUTROPHILS % (AUTO) 79.9 % (43.0-81.0); PLATELET COUNT (AUTO) 187 K/uL (150-450); RED BLOOD CELL COUNT(AUTO) 2.38 MIL/uL (4.5-6.0); RED CELL DISTRIBUTION WIDTH 13.6 % (11.5-15.0); WHITE BLOOD COUNT (AUTO) 10.9 K/uL (4.3-11.0)
[2023-09-11 06:20] LABS: CALCIUM, SERUM 7.9 mg/dL (8.5-10.1); CREATININE 5.7 mg/dL (0.6-1.3); MAGNESIUM 1.9 mg/dL (1.8-2.4)
[2023-09-11 08:18] LABS: ANISOCYTOSIS 1+; LYMPHOCYTES % (MANUAL) 9 % (16-48); MONOCYTES % (MANUAL) 7 % (0-11.0); NEUTROPHILS % (MANUAL) 84 (42-76); PLATELET ESTIMATE ADEQUATE
[2023-09-11] MEDS ORDERED: PANTOPRAZOLE 40 MG VIAL IV SCH (09:00)
[2023-09-11 11:23] LABS: CALCIUM, SERUM 8.2 mg/dL (8.5-10.1); CREATININE 5.6 mg/dL (0.6-1.3); POTASSIUM 4.5 mmol/L (3.5-5.1)
[2023-09-11] MEDS ORDERED: INSULIN GLARGINE, 100 UNIT/ML CARTRIDGE SQ ONE ×2 (13:00→13:30)
[2023-09-11] MEDS ORDERED: DEXTROSE 50%-WATER 50 ML DISP.SYRIN IV PRN (13:00)
[2023-09-11] MEDS ORDERED: INSULIN REGULAR, HUMAN 100 UNIT/ML 3 ML VIAL SQ PRN (13:00)
[2023-09-11] MEDS ORDERED: *INSULIN REGULAR(HUMULIN R)HUM 100 UNIT/ML VIAL SQ PRN (13:00)
[2023-09-11 14:28] LABS: CALCIUM, SERUM 8.3 mg/dL (8.5-10.1); CREATININE 5.6 mg/dL (0.6-1.3); POTASSIUM 4.1 mmol/L (3.5-5.1)
[2023-09-11] MEDS ORDERED: IV 1/2NS 1000 ML 1,000 ML IV ONE (15:00)
[2023-09-11] MEDS ORDERED: BLOOD SUGAR DIAGNOSTIC 1 EACH STRIP VI SCH (17:30)
== END 2023-09-11 16:25 | disposition short-term general hospital (02) | DRG 637 ==
LOC: ER 10:26 → TRANSITION 16:52 → ICU 19:10
PROVIDERS: ADMIT Nurse Practitioner Acute Care; ATTEND Nurse Practitioner Acute Care
DX: E11.10 Type 2 diabetes mellitus with ketoacidosis without coma (principal); G92.8 Other toxic encephalopathy; N17.0 Acute kidney failure with tubular necrosis; N18.4 Chronic kidney disease, stage 4 (severe); E86.0 Dehydration; G40.909 Epilepsy, unspecified, not intractable, without status epilepticus; E11.22 Type 2 diabetes mellitus with diabetic chronic kidney disease; E87.5 Hyperkalemia; Z86.73 Personal history of transient ischemic attack (TIA), and cerebral infarction without residual deficits; Z79.4 Long term (current) use of insulin; I12.9 Hypertensive chronic kidney disease with stage 1 through stage 4 chronic kidney disease, or unspecified chronic kidney disease; E83.39 Other disorders of phosphorus metabolism
CPT/HCPCS: 36415; 70450-TC; 71045-TC; 76770-TC; 80048-TC; 80061-TC; 80076-TC; 81001; 82962-TC; 83605-TC; 83735-TC; 84100-TC; 84439-TC; 84443-TC; 84484-TC; 85025-TC; 85730-TC; 87040-TC; 87081-TC; 87086-TC; A4223; C9113; G0378; J0360; J1815; J1953; J2060; J3490; J7030; J7120

== ENCOUNTER 2023-11-04 14:27 | Inpatient (IN) | payer OTHER ==
[~2023-11-04] VITALS: Ht 175.3 cm; Wt 78.9 kg
[~2023-11-04 14:27] MED LIST changes: +DEXT1TAB29 PO; -SEMGLEE SQ; -TRAZ150T75 PO; -[UNRECOGNIZED DRUG - CODE] PO
[2023-11-04] MEDS ORDERED: IV NS 0.9% 1,000 ML BAG IV ONE (15:00)
[2023-11-04 15:36] LABS: BASOPHILS # (AUTO) 0.1 K/uL (0.0-0.2); BASOPHILS % (AUTO) 1.7 % (0.0-2.0); EOSINOPHILS % (AUTO) 0.6 % (0.0-6.0); HEMATOCRIT 28 % (39-51); HEMOGLOBIN 9.1 g/dL (13.5-17.5); LYMPHOCYTES # (AUTO) 0.3 K/uL (0.8-4.8); LYMPHOCYTES % (AUTO) 4.1 % (20.0-44.0); MEAN CORPUSCULAR HEMOGLOBIN 31 PG (26.0-33.0); MEAN CORPUSCULAR HGB CONC 33 g/dl (31.0-36.0); MEAN CORPUSCULAR VOLUME 97 fL (80-96); MONOCYTES # (AUTO) 0.5 K/uL (0.1-1.30); MONOCYTES % (AUTO) 7.2 % (2.0-12.0); NEUTROPHILS # (AUTO) 6.6 K/uL (1.8-8.9); NEUTROPHILS % (AUTO) 86.4 % (43.0-81.0); PLATELET COUNT (AUTO) 207 K/uL (150-450); RED BLOOD CELL COUNT(AUTO) 2.91 MIL/uL (4.5-6.0); RED CELL DISTRIBUTION WIDTH 18.3 % (11.5-15.0); WHITE BLOOD COUNT (AUTO) 7.7 K/uL (4.3-11.0)
[2023-11-04] MEDS ORDERED: NPH,100V SQ (15:51)
[2023-11-04] MEDS ORDERED: ONDA4TAB5 PO (15:51)
[2023-11-04] MEDS ORDERED: TRAZ-182 PO (15:51)
[2023-11-04] MEDS ORDERED: HYDR-4303 PO (15:51)
[2023-11-04] MEDS ORDERED: INSU100V27 SQ (15:51)
[2023-11-04] MEDS ORDERED: DOCU-141 PO (15:51)
[2023-11-04] MEDS ORDERED: LACT10SO3 PO (15:51)
[2023-11-04 16:01] LABS: CALCIUM, SERUM 7.8 mg/dL (8.5-10.1); CARBON DIOXIDE 14 mmol/L (21-32); CHLORIDE 102 mmol/L (98-107); CREATININE 5.5 mg/dL (0.6-1.3); POTASSIUM 6.1 mmol/L (3.5-5.1); SODIUM SERUM 131 mmol/L (136-145); UREA NITROGEN, BLOOD 69 mg/dL (7-18)
[2023-11-04 16:03] LABS: GLUCOSE 482 mg/dL (74-106)
[2023-11-04 16:06] LABS: ACETAMINOPHEN < 10 ug/ml (10-30); ALANINE AMINOTRANSFERASE 20 U/L (12-78); ALCOHOL, BLOOD < 3 mg/dL (0-10); ALKALINE PHOSPHATASE 192 U/L (46-116); ASPARTATE AMINOTRANSFERASE 25 U/L (15-37); BILIRUBIN,DIRECT 0.1 mg/dL (0.0-0.2); BILIRUBIN,TOTAL 0.2 mg/dL (0.2-1.0); SALICYLATE 3.7 mg/dL (2.8-20.0); TOTAL PROTEIN, SERUM 5.8 g/dL (6.4-8.2)
[2023-11-04] MEDS ORDERED: SODIUM POLYSTYRENE SULFONATE 15 G/60 ML BOTTLE PO ONE (16:30)
[2023-11-04] MEDS ORDERED: IV NS 0.9% 1,000 ML IV PRN (16:30)
[2023-11-04] MEDS ORDERED: ALBUTEROL FS 2.5 MG/3 ML VIAL.NEB NEB ONE (16:30)
[2023-11-04] MEDS ORDERED: INSULIN REGULAR, HUMAN 100 UNITS in IV NS 0.9% 100 ML IV PRN ×2 (16:30)
[2023-11-04] MEDS ORDERED: SODIUM POLYSTYRENE SULFONATE 15 G/60 ML BOTTLE ONE (16:44)
[2023-11-04 20:14] LABS: CALCIUM, SERUM 7.5 mg/dL (8.5-10.1); CREATININE 5.4 mg/dL (0.6-1.3); POTASSIUM 5.2 mmol/L (3.5-5.1)
[2023-11-04 20:16] LABS: PHOSPHORUS 8.2 mg/dL (2.5-4.9)
[2023-11-04 20:40] LABS: CALCIUM, SERUM 7.6 mg/dL (8.5-10.1); CREATININE 5.3 mg/dL (0.6-1.3); POTASSIUM 5.3 mmol/L (3.5-5.1)
[2023-11-04 20:47] LABS: PHOSPHORUS 8.3 mg/dL (2.5-4.9)
[2023-11-04] MEDS ORDERED: ONDANSETRON HCL/PF 4 MG/2 ML VIAL IVP PRN (21:00)
[2023-11-04] MEDS ORDERED: ACETAMINOPHEN 325 MG TABLET PO PRN (21:00)
[2023-11-04] MEDS ORDERED: MORPHINE SULFATE INJ 2 MG/ML DISP.SYRIN IV PRN (21:00)
[2023-11-04] MEDS ORDERED: HEPARIN SODIUM, PORCINE 5000 UNITS/1 ML VIAL ONE (21:26)
[2023-11-04] MEDS: HEPARIN SODIUM, PORCINE 5000 UNITS/1 ML VIAL SQ SCH (21:38)
[2023-11-04] MEDS ORDERED: TRAZODONE 50 MG TABLET ONE (22:55)
[2023-11-04] MEDS: TRAZODONE 50 MG TABLET PO SCH (23:00)
[2023-11-04] MEDS ORDERED: DEXTROSE 50%-WATER 50 ML DISP.SYRIN IVP ONE (23:00)
[2023-11-04] MEDS ORDERED: MORPHINE SULFATE INJ 2 MG/ML DISP.SYRIN ONE (23:57)
[2023-11-05] VITALS (19 sets, daily range): BP systolic 136–194; BP diastolic 66–110; TEMP 98–98.6; O2SAT 96–99
[2023-11-05 01:45] LABS: ALBUMIN 1.7 g/dL (3.4-5.0); BILIRUBIN,TOTAL 0.2 mg/dL (0.2-1.0); CALCIUM, SERUM 7.6 mg/dL (8.5-10.1); CREATININE 5.2 mg/dL (0.6-1.3); POTASSIUM 5.2 mmol/L (3.5-5.1); TOTAL PROTEIN, SERUM 5.1 g/dL (6.4-8.2)
[2023-11-05 06:50] LABS: ABG BASE EXCESS -11.6 mmol/L; ABG PCO2 32.2 mmHg (35.0-45.0); ABG PH 7.266 (7.350-7.450); ABG PO2 98.1 mmHg (75.0-100.0); ABG TOTAL HEMOGLOBIN 9.7 G/dL (13.5-18.0); COHb 0.3 % (0.5-1.5); MetHb 0.3 % (0.0-1.5); O2Hb 95.4 % (94.0-97.0); SITE, ABG Right Radial; VENT MODE, BG ROOM AIR
[2023-11-05 08:18] LABS: BASOPHILS # (AUTO) 0.2 K/uL (0.0-0.2); BASOPHILS % (AUTO) 2.9 % (0.0-2.0); EOSINOPHILS # (AUTO) 0.1 K/uL (0.0-0.7); EOSINOPHILS % (AUTO) 2.4 % (0.0-6.0); HEMATOCRIT 26 % (39-51); HEMOGLOBIN 8.4 g/dL (13.5-17.5); LYMPHOCYTES # (AUTO) 0.9 K/uL (0.8-4.8); LYMPHOCYTES % (AUTO) 17.2 % (20.0-44.0); MEAN CORPUSCULAR HEMOGLOBIN 32 PG (26.0-33.0); MEAN CORPUSCULAR HGB CONC 33 g/dl (31.0-36.0); MEAN CORPUSCULAR VOLUME 96 fL (80-96); MONOCYTES # (AUTO) 0.4 K/uL (0.1-1.30); MONOCYTES % (AUTO) 7.3 % (2.0-12.0); NEUTROPHILS # (AUTO) 3.8 K/uL (1.8-8.9); NEUTROPHILS % (AUTO) 70.2 % (43.0-81.0); PLATELET COUNT (AUTO) 173 K/uL (150-450); RED BLOOD CELL COUNT(AUTO) 2.65 MIL/uL (4.5-6.0); RED CELL DISTRIBUTION WIDTH 17.6 % (11.5-15.0); WHITE BLOOD COUNT (AUTO) 5.4 K/uL (4.3-11.0)
[2023-11-05 08:32] LABS: ALBUMIN 1.8 g/dL (3.4-5.0); BILIRUBIN,TOTAL 0.2 mg/dL (0.2-1.0); CALCIUM, SERUM 7.9 mg/dL (8.5-10.1); CREATININE 5.1 mg/dL (0.6-1.3); POTASSIUM 5.2 mmol/L (3.5-5.1); TOTAL PROTEIN, SERUM 5.3 g/dL (6.4-8.2)
[2023-11-05 08:51] LABS: PHOSPHORUS 8.2 mg/dL (2.5-4.9)
[2023-11-05] MEDS: HEPARIN SODIUM, PORCINE 5000 UNITS/1 ML VIAL SQ SCH ×2 (11:12→21:52)
[2023-11-05] MEDS: PAROXETINE HCL 20 MG TABLET PO SCH (11:13)
[2023-11-05] MEDS: DOCUSATE SODIUM 100 MG CAPSULE PO SCH ×2 (11:13→16:27)
[2023-11-05] MEDS: ATORVASTATIN 10 MG TABLET PO SCH (11:13)
[2023-11-05] MEDS: LEVETIRACETAM (250 MG) 250 MG TABLET PO SCH ×2 (11:13→21:52)
[2023-11-05] MEDS: CALCIUM ACETATE 667 MG CAP/TAB PO SCH ×3 (11:13→17:01)
[2023-11-05] MEDS: hydrALAZINE HCL 50 MG TABLET PO SCH ×3 (11:13→16:33)
[2023-11-05] MEDS: AMLODIPINE BESYLATE 10 MG TABLET PO SCH (11:14)
[2023-11-05] MEDS: BUMETANIDE (1 MG) 1 MG TABLET PO SCH ×2 (11:14→16:33)
[2023-11-05] MEDS: SODIUM BICARBONATE 650 MG TABLET PO SCH ×2 (11:14→16:34)
[2023-11-05] MEDS: FERROUS SULFATE (325 MG) 325 MG/TAB TABLET PO SCH (11:15)
[2023-11-05] MEDS ORDERED: INSULIN REGULAR, HUMAN 100 UNIT in IV NS 0.9% 99 ML IV PRN ×2 (11:30)
[2023-11-05] MEDS: IV D5/0.45 NACL 1,000 ML IV PRN ×3 (11:58→23:03)
[2023-11-05 12:30] LABS: APPEARANCE,URINE CLEAR (CLEAR); BILIRUBIN,URINE NEGATIVE (NEGATIVE); BLOOD, URINE 2+ Ery/uL (NEGATIVE); COLOR,URINE YELLOW (YELLOW); KETONES,URINE NEGATIVE (NEGATIVE); LEUKOCYTE ESTERASE ,URINE NEGATIVE (NEGATIVE); NITRITE, URINE POSITIVE (NEGATIVE); PH,URINE 5.5 (5.0-8.0); PROTEIN,URINE 3+ mg/dl (NEGATIVE); UGLUCOSE 1+ mg/dL (NEGATIVE); UROBILINOGEN,URINE 0.2 EU/dL (0.2)
[2023-11-05 12:53] LABS: AMPHETAMINE, URINE NEGATIVE (NEGATIVE); BENZODIAZEPINE, URINE NEGATIVE (NEGATIVE); COCCAINE, URINE NEGATIVE (NEGATIVE); OPIATE, URINE NEGATIVE (NEGATIVE); PHENCYCLIDINE SCREEN,URINE NEGATIVE (NEGATIVE)
[2023-11-05 12:54] LABS: BARBITURATE, URINE POSITIVE (NEGATIVE); CANNABINOID, URINE POSITIVE (NEGATIVE)
[2023-11-05 13:33] LABS: ALBUMIN 1.8 g/dL (3.4-5.0); BILIRUBIN,TOTAL 0.2 mg/dL (0.2-1.0); CALCIUM, SERUM 8.1 mg/dL (8.5-10.1); CREATININE 5.2 mg/dL (0.6-1.3); POTASSIUM 4.8 mmol/L (3.5-5.1); TOTAL PROTEIN, SERUM 5.4 g/dL (6.4-8.2)
[2023-11-05 13:45] LABS: ADD URINE CULTURE YES; BACTERIA,URINE Many /HPF (None Seen)
[2023-11-05 13:46] LABS: SQUAMOUS EPITHELIAL CELL,UR Few /HPF (None Seen)
[2023-11-05] MEDS: BISOPROLOL FUMARATE 5 MG TABLET PO SCH (16:33)
[2023-11-05 18:02] LABS: ALBUMIN 1.9 g/dL (3.4-5.0); BILIRUBIN,TOTAL 0.2 mg/dL (0.2-1.0); CALCIUM, SERUM 8.2 mg/dL (8.5-10.1); CREATININE 5.1 mg/dL (0.6-1.3); POTASSIUM 4.8 mmol/L (3.5-5.1); TOTAL PROTEIN, SERUM 5.5 g/dL (6.4-8.2)
[2023-11-05] MEDS ORDERED: DEXTROSE 50%-WATER 50 ML DISP.SYRIN IV PRN (19:00)
[2023-11-05] MEDS ORDERED: *INSULIN REGULAR(HUMULIN R)HUM 100 UNIT/ML VIAL SQ PRN (19:00)
[2023-11-05 21:26] LABS: ALBUMIN 1.9 g/dL (3.4-5.0); BILIRUBIN,TOTAL 0.2 mg/dL (0.2-1.0); CALCIUM, SERUM 8.1 mg/dL (8.5-10.1); CREATININE 5.1 mg/dL (0.6-1.3); POTASSIUM 4.8 mmol/L (3.5-5.1); TOTAL PROTEIN, SERUM 5.6 g/dL (6.4-8.2)
[2023-11-05] MEDS: TRAZODONE 50 MG TABLET PO SCH (21:52)
[2023-11-05] MEDS: BLOOD SUGAR DIAGNOSTIC 1 EACH STRIP VI SCH (21:54)
[2023-11-05] MEDS ORDERED: INSULIN GLARGINE, 100 UNIT/ML CARTRIDGE SQ SCH (22:00)
[2023-11-05] MEDS ORDERED: PHENOBARBITAL 97.2 MG PO SCH (22:00)
[2023-11-05] MEDS ORDERED: PHENOBARBITAL 30 MG TABLET PO SCH (22:00)
[2023-11-05] MEDS: hydrALAZINE HCL IV 20 MG VIAL IV PRN (22:02)
[2023-11-06 06:27] LABS: HEPATITIS B SURFACE AB Non Reactive (.)
[2023-11-06] MEDS: BLOOD SUGAR DIAGNOSTIC 1 EACH STRIP VI SCH ×3 (06:36→17:06)
[2023-11-06] MEDS ORDERED: KEY,NONCONTROL,TO KEEP IN PYXI 1 EA MC ONE ×3 (06:58→18:20)
[2023-11-06 07:34] LABS: ALBUMIN 1.8 g/dL (3.4-5.0); BILIRUBIN,TOTAL 0.1 mg/dL (0.2-1.0); CALCIUM, SERUM 8.2 mg/dL (8.5-10.1); CREATININE 5.2 mg/dL (0.6-1.3); POTASSIUM 4.7 mmol/L (3.5-5.1); TOTAL PROTEIN, SERUM 5.5 g/dL (6.4-8.2)
[2023-11-06 08:00] VITALS: BP 178/78; TEMP 97.3; O2SAT 98
[2023-11-06] MEDS: CALCIUM ACETATE 667 MG CAP/TAB PO SCH ×3 (08:40→17:05)
[2023-11-06] MEDS: BUMETANIDE (1 MG) 1 MG TABLET PO SCH ×2 (08:40→17:00)
[2023-11-06] MEDS: LEVETIRACETAM (250 MG) 250 MG TABLET PO SCH (08:41)
[2023-11-06] MEDS: FERROUS SULFATE (325 MG) 325 MG/TAB TABLET PO SCH (08:41)
[2023-11-06] MEDS: SODIUM BICARBONATE 650 MG TABLET PO SCH ×2 (08:41→16:59)
[2023-11-06] MEDS: ATORVASTATIN 10 MG TABLET PO SCH (08:41)
[2023-11-06] MEDS: DOCUSATE SODIUM 100 MG CAPSULE PO SCH ×2 (08:41→16:59)
[2023-11-06] MEDS: PAROXETINE HCL 20 MG TABLET PO SCH (08:42)
[2023-11-06] MEDS: hydrALAZINE HCL 50 MG TABLET PO SCH ×3 (08:42→17:00)
[2023-11-06] MEDS: AMLODIPINE BESYLATE 10 MG TABLET PO SCH (08:43)
[2023-11-06 09:00] VITALS: BP 178/78; TEMP 97.3; O2SAT 98
[2023-11-06] MEDS ORDERED: PHENOBARBITAL 30 MG TABLET PO SCH (09:00)
[2023-11-06] MEDS ORDERED: FAMOTIDINE (20 MG) 20 MG TABLET PO SCH (09:00)
[2023-11-06] MEDS: BISOPROLOL FUMARATE 5 MG TABLET PO SCH (09:05)
[2023-11-06] MEDS: HEPARIN SODIUM, PORCINE 5000 UNITS/1 ML VIAL SQ SCH (09:08)
[2023-11-06] MEDS: hydrALAZINE HCL IV 20 MG VIAL IV PRN (10:11)
[2023-11-06] MEDS: INSULIN REGULAR, HUMAN 100 UNIT/ML 3 ML VIAL SQ PRN ×2 (11:39→18:10)
[2023-11-06] MEDS: IV D5/0.45 NACL 1,000 ML IV PRN (12:58)
[2023-11-06] MEDS: ZENPEP PO SCH ×2 (15:08→17:03)
[2023-11-06 16:00] VITALS: BP 136/61; TEMP 97.3; O2SAT 98
[2023-11-06 17:00] VITALS: BP 136/61
== END 2023-11-06 18:43 | disposition short-term general hospital (02) | DRG 637 ==
LOC: ER 14:38 → TRANSITION 21:12 → ICU 11-05 07:34 → MED 11-05 22:36
PROVIDERS: ADMIT Internal Medicine; ATTEND Nurse Practitioner Family
DX: E11.10 Type 2 diabetes mellitus with ketoacidosis without coma (principal); N18.6 End stage renal disease; S22.31XA Fracture of one rib, right side, initial encounter for closed fracture; E44.0 Moderate protein-calorie malnutrition; I12.0 Hypertensive chronic kidney disease with stage 5 chronic kidney disease or end stage renal disease; D50.9 Iron deficiency anemia, unspecified; D63.1 Anemia in chronic kidney disease; E78.5 Hyperlipidemia, unspecified; E83.39 Other disorders of phosphorus metabolism; E87.5 Hyperkalemia; E88.09 Other disorders of plasma-protein metabolism, not elsewhere classified; E11.22 Type 2 diabetes mellitus with diabetic chronic kidney disease; Z99.2 Dependence on renal dialysis; G40.909 Epilepsy, unspecified, not intractable, without status epilepticus; Z79.4 Long term (current) use of insulin; Z68.25 Body mass index [BMI] 25.0-25.9, adult; Y93.9 Activity, unspecified; X58.XXXA Exposure to other specified factors, initial encounter; Y92.9 Unspecified place or not applicable
CPT/HCPCS: 36410; 36415; 36600; 70450-TC; 71045-TC; 71100-TC; 80048-TC; 80053-TC; 80076-TC; 81001; 82803-TC; 82962-TC; 83605-TC; 83735-TC; 84100-TC; 85025-TC; 86706; 87086-TC; 87340; A4223; G0378; G0480; J0360; J1644; J1815; J2270; J2405; J3490; J7030

== ENCOUNTER 2024-02-18 12:55 | Emergency (ER) | payer OTHER, MEDICAID ==
[~2024-02-18] VITALS: Ht 188 cm; Wt 83.9 kg
[~2024-02-18 12:55] MED LIST changes: +DOCU-141 PO; -EPOE200011 SQ; +HYDR-4303 PO; +LACT10SO3 PO; +NPH,100V SQ; +ONDA4TAB5 PO; -SODI10PO PO; +TRAZ-182 PO
[2024-02-18 14:12] LABS: CALCIUM, SERUM 7.7 mg/dL (8.5-10.1); POTASSIUM 4.7 mmol/L (3.5-5.1)
[2024-02-18 14:13] LABS: BASOPHILS # (AUTO) 0.2 K/uL (0.0-0.2); BASOPHILS % (AUTO) 2.3 % (0.0-2.0); EOSINOPHILS # (AUTO) 0.3 K/uL (0.0-0.7); EOSINOPHILS % (AUTO) 3.1 % (0.0-6.0); HEMATOCRIT 38 % (39-51); HEMOGLOBIN 12.4 g/dL (13.5-17.5); LYMPHOCYTES % (AUTO) 10.3 % (20.0-44.0); MEAN CORPUSCULAR HEMOGLOBIN 32 PG (26.0-33.0); MEAN CORPUSCULAR HGB CONC 33 g/dl (31.0-36.0); MEAN CORPUSCULAR VOLUME 97 fL (80-96); MONOCYTES # (AUTO) 0.5 K/uL (0.1-1.30); MONOCYTES % (AUTO) 5.4 % (2.0-12.0); NEUTROPHILS # (AUTO) 7.4 K/uL (1.8-8.9); NEUTROPHILS % (AUTO) 78.9 % (43.0-81.0); PLATELET COUNT (AUTO) 301 K/uL (150-450); RED BLOOD CELL COUNT(AUTO) 3.92 MIL/uL (4.5-6.0); RED CELL DISTRIBUTION WIDTH 15.2 % (11.5-15.0); WHITE BLOOD COUNT (AUTO) 9.4 K/uL (4.3-11.0)
[2024-02-18 14:16] LABS: INR 0.93 (0.91-1.10); PARTIAL THROMBOPLASTIN TIME 27.1 SEC (24.3-34.3); PROTHROMBIN TIME 9.6 SECS (9.2-11.1)
[2024-02-18 14:18] LABS: ALBUMIN 2.1 g/dL (3.4-5.0); BILIRUBIN,DIRECT 0.1 mg/dL (0.0-0.2); BILIRUBIN,TOTAL 0.2 mg/dL (0.2-1.0); TOTAL PROTEIN, SERUM 6.6 g/dL (6.4-8.2)
[2024-02-18] MEDS: IV NS 0.9% 1,000 ML BAG IV ONE (14:20)
[2024-02-18] MEDS: VANCOMYCIN 1 GM in IV D5W 250 ML IV ONE (15:30)
[2024-02-18] MEDS ORDERED: MORPHINE SULFATE INJ 4 MG/ML DISP.SYRIN ONE (15:47)
[2024-02-18] MEDS ORDERED: ONDANSETRON HCL/PF 4 MG/2 ML VIAL ONE (15:49)
[2024-02-18] MEDS: MORPHINE SULFATE INJ 2 MG/ML DISP.SYRIN IV ONE (15:54)
[2024-02-18] MEDS: ONDANSETRON HCL/PF 4 MG/2 ML VIAL IV ONE (15:54)
[2024-02-18] MEDS: PIPERACILLIN /TAZOBACTAM 3.375 G in IV D5W 50 ML IV ONE (16:13)
[2024-02-18 16:40] LABS: LACTIC ACID 1.8 mmol/L (0.4-2.0)
[2024-02-18] MEDS ORDERED: hydrALAZINE HCL IV 20 MG VIAL ONE (19:44)
[2024-02-18] MEDS: hydrALAZINE HCL IV 20 MG VIAL IV ONE (19:48)
[2024-02-18 20:03] VITALS: BP 187/91; TEMP 98.4; O2SAT 99
== END 2024-02-18 20:10 | disposition short-term general hospital (02) ==
LOC: ER 13:18
DX: L08.9 Local infection of the skin and subcutaneous tissue, unspecified (principal); I12.0 Hypertensive chronic kidney disease with stage 5 chronic kidney disease or end stage renal disease; N18.6 End stage renal disease; Z79.4 Long term (current) use of insulin; R79.82 Elevated C-reactive protein (CRP); E87.1 Hypo-osmolality and hyponatremia; E63.9 Nutritional deficiency, unspecified; E78.5 Hyperlipidemia, unspecified; E11.22 Type 2 diabetes mellitus with diabetic chronic kidney disease; D64.9 Anemia, unspecified; Z99.2 Dependence on renal dialysis; Z79.899 Other long term (current) drug therapy; Z88.1 Allergy status to other antibiotic agents
CPT/HCPCS: 99285; 96365; 96375; 71045; 96367; 96361; 93005; 73620; 85025; 80048; 87040 ×2; 83605; 80076; 85652; 36415; 85730; 86850; 86140; J0360; J2270; J3370; J2405; J2543; J7060